=== PATIENT | male | born 1960 | race Caucasian/White ===

== ENCOUNTER 2017-03-17 10:04 | Emergency (ER) | payer OTHER ==
[2017-03-17 10:14] VITALS: BP 164/86
--- NOTE | 2017-03-17 11:40 | EDM.PDOC ---
ED HPI GENERAL MEDICAL PROBLEM - General Chief Complaint: Respiratory Problem Stated Complaint: DIFFICULTY BREATHING Time Seen by Provider: 03/17/17 10:41 Source of Information: Reports: Patient, Family (spouse), RN Notes Reviewed - History of Present Illness INITIAL COMMENTS - FREE TEXT/NARRATIVE: 57 year old male comes in with feeling of "drowing in his saliva" when he lies flat. He has hx of recently diagnosed NonHodgkins Lymphoma, has his first chemo this past Sunday 5 days ago. Does not feel overly short of breath. No chest pain. Occasional nonprod cough. He denies sore throat, fever or chills. No abd pain, nausea or vomiting. He has some local spread in the L neck soft tissue according to his and also some "small spots on his lungs" - Related Data Allergies Allergy/AdvReac Type Severity Reaction Status Date / Time No Known Allergies Allergy Verified 03/17/17 10:14 Home Meds: Home Meds Albuterol Sulfate [Proair Hfa] 8.5 gm IH ASDIRECTED PRN 03/17/17 [History] Allopurinol [Zyloprim] 300 mg PO BID 03/17/17 [History] Ascorbic Acid [Vitamin C] 1,000 mg PO BID 03/17/17 [History] Lisinopril 40 mg PO DAILY 03/17/17 [History] Prochlorperazine [Compazine] 10 mg PO Q6H PRN 03/17/17 [History] Past Medical History HEENT History: Reports: Impaired Vision Other HEENT History: wears corrective lenses Cardiovascular History: Reports: Hypertension Respiratory History: Reports: COPD, Other (See Below) Other Respiratory History: whooping cough 2016 Gastrointestinal History: Reports: GERD Musculoskeletal History: Reports: Other (See Below) Other Musculoskeletal History: right rotator surgery Oncologic (Cancer) History: Reports: Lymphoma - Infectious Disease History Infectious Disease History: Reports: Pertussis (Whooping Cough) - Past Surgical History Cardiovascular Surgical History: Reports: None Respiratory Surgical History: Reports: None Social & Family History - Tobacco Use Smoking Status *Q: Current Every Day Smoker Years of Tobacco use: 40 Packs/Tins Daily: 0.5 Used Tobacco, but Quit: Yes Month Tobacco Last Used: 12 Second Hand Smoke Exposure: No - Caffeine Use Caffeine Use: Reports: Coffee - Recreational Drug Use Recreational Drug Use: No ED ROS GENERAL - Review of Systems Review Of Systems: See Below Constitutional: Denies: Fever, Chills, Diaphoresis HEENT: Denies: Throat Pain, Throat Swelling Respiratory: Reports: Shortness of Breath (exertional), Cough (occasional). Denies: Sputum, Hemoptysis Cardiovascular: Reports: Dyspnea on Exertion. Denies: Chest Pain, Lightheadedness GI/Abdominal: Denies: Abdominal Pain, Nausea, Vomiting Musculoskeletal: Reports: Neck Pain (minimal R neck discomfort, mild swelling R neck) Skin: Denies: Rash Neurological: Denies: Headache, Numbness, Tingling, Trouble Speaking, Weakness ED EXAM, GENERAL - Physical Exam Exam: See Below General Appearance: Alert, No Apparent Distress Eye Exam: Bilateral Eye: PERRL Throat/Mouth: Normal Inspection, Normal Oropharynx Head: Atraumatic. No: Facial Swelling Neck: Supple, Other (There is some swelling to the R lateral neck, nontender at this time) Respiratory/Chest: No Respiratory Distress, Lungs Clear, Normal Breath Sounds Cardiovascular: Regular Rate, Rhythm GI/Abdominal: Soft, Non-Tender Extremities: Normal Inspection, Normal Range of Motion. No: Pedal Edema, Leg Pain, Increased Warmth, Redness Neurological: Alert, Oriented, No Motor/Sensory Deficits Skin Exam: Warm, Dry, Normal Color Course - Vital Signs Last Recorded V/S: Last Vital Signs Temp 97.2 F 03/17/17 10:10 Pulse 97 03/17/17 10:10 Resp 22 H 03/17/17 10:10 BP 164/86 H 03/17/17 10:10 Pulse Ox 98 03/17/17 10:10 - Orders/Labs/Meds Orders: Active Orders 24 hr Category Date Time Status Chest 1V Frontal [CR] Stat Exams 03/17/17 10:42 Taken Labs: Laboratory Tests 03/17/17 03/17/17 Range/Units 10:55 10:55 WBC 13.84 H (4.23-9.07) K/mm3 RBC 3.85 L (4.63-6.08) M/mm3 Hgb 12.0 L (13.7-17.5) gm/L Hct 34.8 L (40.1-51.0) % MCV 90.4 (79.0-92.2) fl MCH 31.2 (25.7-32.2) pg MCHC 34.5 (32.2-35.5) g/dl RDW Std Deviation 41.1 (35.1-43.9) fL Plt Count 165 (163-337) K/mm3 MPV 8.2 L (9.4-12.3) fl Neut % (Auto) 81.6 H (34.0-67.9) % Lymph % (Auto) 3.0 L (21.8-53.1) % Ashley % (Auto) 1.2 L (5.3-12.2) % Eos % (Auto) 0.1 L (0.8-7.0) Baso % (Auto) 0.4 (0.1-1.2) % Neut # (Auto) 11.30 H (1.78-5.38) K/mm3 Lymph # (Auto) 0.41 L (1.32-3.57) K/mm3 Ashley # (Auto) 0.16 L (0.30-0.82) K/mm3 Eos # (Auto) 0.01 L (0.04-0.54) K/mm3 Baso # (Auto) 0.06 (0.01-0.08) K/mm3 Manual Slide Review Abnormal smear Sodium 140 (136-145) mEq/L Potassium 3.7 (3.5-5.1) mEq/L Chloride 104 (98-107) mEq/L Carbon Dioxide 30 (21-32) mEq/L Anion Gap 9.7 (5-15) BUN 19 H (7-18) mg/dL Creatinine 1.1 (0.7-1.3) mg/dL Est Cr Clr Drug Dosing 69.95 mL/min Estimated GFR (MDRD) > 60 (>60) mL/min BUN/Creatinine Ratio 17.3 (14-18) Glucose 100 (74-106) mg/dL Calcium 9.1 (8.5-10.1) mg/dL Total Bilirubin 0.6 (0.2-1.0) mg/dL AST 17 (15-37) U/L ALT 24 (16-63) U/L Alkaline Phosphatase 83 (46-116) U/L Total Protein 6.6 (6.4-8.2) g/dl Albumin 3.8 (3.4-5.0) g/dl Globulin 2.8 gm/dL Albumin/Globulin Ratio 1.4 (1-2) - Re-Assessments/Exams Free Text/Narrative Re-Assessment/Exam: 03/17/17 12:54 CXR does show some small nodular type lesions bilat, no infiltrate, pul congestion or effusion, WBC about 13,800. other labs all relatively normal. Departure - Departure Time of Disposition: 11:40 Disposition: Home, Self-Care 01 Condition: Fair Clinical Impression: Lymphoma Qualifiers: Lymphoma type: non-Hodgkin Non-Hodgkin lymphoma type: unspecified type Lymphoma site: unspecified region Qualified Code(s): C85.90 - Non-Hodgkin lymphoma, unspecified, unspecified site GERD (gastroesophageal reflux disease) Qualifiers: Esophagitis presence: without esophagitis Qualified Code(s): K21.9 - Gastro- esophageal reflux disease without esophagitis - Discharge Information Instructions: Gastroesophageal Reflux Disease, Adult Referrals: Yulia Meza DO [Primary Care Provider] - Forms: ED Department Discharge Additional Instructions: continue current meds, try avoid acidic or spicy food for now, prilosec 20 mg daily to help reduce stomach acid, Call or follow up clinic as needed, return to ED if symptoms worsening in any way. - My Orders Last 24 Hours: My Active Orders 03/17/17 10:42 Chest 1V Frontal [CR] Stat - Assessment/Plan Last 24 Hours: My Active Orders 03/17/17 10:42 Chest 1V Frontal [CR] Stat
--- NOTE | 2017-03-18 19:58 | CR ---
Chest: Portable view of the chest was obtained. Comparison: No prior chest x-ray. Nodule is identified within the right upper lung measuring 1.6 cm. Smaller nodule is noted within the left lung base measuring approximately 7 mm. Two nodules are noted within the right lung base measuring about 1.4 cm and 1.0 cm in size. Small left upper lobe nodule measuring about 7 mm is seen. Lungs otherwise are clear. Heart size is normal. Tortuous thoracic aorta is seen. Infusion port entering from the left side. Previous right shoulder surgery is noted. Impression: 1. Multiple pulmonary nodules which are most likely metastatic in etiology. 2. Other incidental findings. Nothing acute is identified. Diagnostic code #9
== END 2017-03-17 11:50 | disposition home or self-care (01) ==
LOC: JD.ED 10:04
DX: C85.90 Non-Hodgkin lymphoma, unspecified, unspecified site (principal); K21.9 Gastro-esophageal reflux disease without esophagitis; I10 Essential (primary) hypertension; F17.210 Nicotine dependence, cigarettes, uncomplicated; Z79.899 Other long term (current) drug therapy
CPT/HCPCS: 36415; 71010; 71010-26; 80053; 85025; 99284; 99285

== ENCOUNTER 2017-04-18 23:56 | Emergency (ER) | payer OTHER ==
[2017-04-19 00:16] VITALS: BP 134/92
--- NOTE | 2017-04-19 00:31 | EDM.PDOC ---
ED HPI GENERAL MEDICAL PROBLEM - General Chief Complaint: General Stated Complaint: COMPLICATIONS WITH PRETIZONE Time Seen by Provider: 04/19/17 00:35 Source of Information: Reports: Patient, Family ( and daughter) History Limitations: Reports: No Limitations - History of Present Illness INITIAL COMMENTS - FREE TEXT/NARRATIVE: 57-year-old male reports to the ED primarily due to exhaustion secondary to insomnia. Patient has now received his third course of chemotherapy for non- Hodgkin's lymphoma which is stage IV i.e. above and below the diaphragm. No stopped by biopsy of a supraclavicular lymph node on the right side. He receives 100 mg of prednisone orally for 5 days after chemotherapy and he finds that it makes him quite ravenous and hungry while he is on it. Hyperstimulated; however to the point that he becomes agitated and unable to sleep. He finished his prednisone on the and remains agitated and having great difficulty sleeping. He states he'll not offer possibly 30 seconds to minutes and then awakes with a startle response. He is currently on Ambien 10 mg at bedtime for a lengthy period of time and is likely developed a good deal of tolerance to this medication. He is on Ativan 0.5 mg when necessary is recently increased to a full milligram at bedtime and again not helping him sleep. He does not feel ill otherwise in terms that he has no cough fever or chills. Does have some mild diarrhea postchemotherapy. He reports he has not slept at all for the last 4 days and he looks like it. Onset: Gradual, Unknown/Unsure (Problems started since he started high-dose prednisone with his chemotherapy for non-Hodgkin's lymphoma 3 months ago.) Duration: Chronic Location: Reports: Other (Chronic severe insomnia. He has not slept at all for the last 4 days.) Quality: Reports: Same as Previous Episode Severity: Severe Improves with: Reports: None Worsens with: Reports: None Context: Reports: Other Associated Symptoms: Reports: Malaise, Other (Denies any significant arthritic pain in his hips knees elbows or shoulders.). Denies: Confusion (Currently on chemotherapy for non-Hodgkin's lymphoma which includes high-dose prednisone 100 mg daily after chemotherapy is been completed), Chest Pain, Cough, cough w sputum, Diaphoresis, Fever/Chills, Headaches, Loss of Appetite, Nausea/Vomiting , Rash, Seizure, Shortness of Breath, Syncope Treatments NURSING SURGICAL SERVICES DIRECTOR: Reports: Other (see below) (Taking Ambien and Ativan at bedtime without relief.) - Related Data Allergies Allergy/AdvReac Type Severity Reaction Status Date / Time No Known Allergies Allergy Verified 04/19/17 00:16 Home Meds: Home Meds Albuterol Sulfate [Proair Hfa] 8.5 gm IH ASDIRECTED PRN 03/17/17 [History] Allopurinol [Zyloprim] 300 mg PO BID 03/17/17 [History] Ascorbic Acid [Vitamin C] 1,000 mg PO BID 03/17/17 [History] Lisinopril 40 mg PO DAILY 03/17/17 [History] Prochlorperazine [Compazine] 10 mg PO Q6H PRN 03/17/17 [History] Aspirin [Ecotrin] 325 mg PO DAILY 04/19/17 [History] ClonazePAM [KlonoPIN] 2 mg PO BEDTIME PRN #30 tablet 04/19/17 [Rx] Zolpidem [Ambien] 10 mg PO BEDTIME 04/19/17 [History] Past Medical History HEENT History: Reports: Impaired Vision Other HEENT History: wears corrective lenses Cardiovascular History: Reports: Hypertension Respiratory History: Reports: COPD, Other (See Below) Other Respiratory History: whooping cough 2016 Gastrointestinal History: Reports: GERD Musculoskeletal History: Reports: Other (See Below) Other Musculoskeletal History: right rotator surgery Oncologic (Cancer) History: Reports: Non-Hodgkin's Lymphoma (Diagnosed by biopsy of a right supraclavicular lymph node in December. Diagnosis stage IV disease IM bubble below the diaphragm. Currently receiving chemotherapy) - Infectious Disease History Infectious Disease History: Reports: Pertussis (Whooping Cough) - Past Surgical History Cardiovascular Surgical History: Reports: None Respiratory Surgical History: Reports: None Social & Family History - Tobacco Use Smoking Status *Q: Current Every Day Smoker Years of Tobacco use: 40 Packs/Tins Daily: 0.5 Used Tobacco, but Quit: Yes Month Tobacco Last Used: 12 Second Hand Smoke Exposure: No - Caffeine Use Caffeine Use: Reports: Coffee - Recreational Drug Use Recreational Drug Use: No - Living Situation & Occupation Living situation: Reports: Occupation: Disabled ED ROS GENERAL - Review of Systems Review Of Systems: See Below Constitutional: Reports: Chills, Malaise, Weakness (Occasional chills.), Fatigue , Weight Loss (Has lost about 30 pounds of weight since he started chemotherapy. ) HEENT: Reports: No Symptoms Respiratory: Reports: No Symptoms, Other (Occasionally feels like he is choking on his saliva when he's falling asleep.) Cardiovascular: Reports: No Symptoms Endocrine: Reports: Fatigue GI/Abdominal: Reports: Diarrhea (Mild diarrhea and loose semi-formed stools without blood) : Reports: No Symptoms Musculoskeletal: Reports: No Symptoms Skin: Reports: No Symptoms Neurological: Reports: Dizziness, Weakness (generalized from not sleeping.). Denies: Paresthesia, Tremors, Trouble Speaking, Difficulty Walking Psychiatric: Reports: Mood Lability, Other (Severe insomnia.) Hematologic/Lymphatic: Reports: Anemia Immunologic: Reports: No Symptoms ED EXAM, GENERAL - Physical Exam Exam: See Below Exam Limited By: No Limitations General Appearance: Alert, Other (Appears extremely tired and exhausted.) Eye Exam: Bilateral Eye: Normal Inspection Throat/Mouth: Normal Inspection, Normal Lips, Normal Teeth, Normal Oropharynx Head: Normocephalic, Sinus Tenderness Neck: Normal Inspection, Supple, Non-Tender, Full Range of Motion. No: Lymphadenopathy (L), Lymphadenopathy (R) Respiratory/Chest: No Respiratory Distress, Lungs Clear, Normal Breath Sounds, No Accessory Muscle Use Cardiovascular: Normal Peripheral Pulses, Regular Rate, Rhythm, No Edema, No Gallop, No Murmur Extremities: Normal Inspection, Normal Range of Motion, Non-Tender, No Pedal Edema Neurological: Alert, Oriented, CN II-XII Intact, Normal Cognition, Normal Gait, No Motor/Sensory Deficits Psychiatric: Normal Affect, Normal Mood Skin Exam: Warm, Dry, Intact, Normal Color, No Rash Course - Vital Signs Last Recorded V/S: Last Vital Signs Temp 36.8 C 04/19/17 00:13 Pulse 88 04/19/17 00:13 Resp 18 04/19/17 00:13 BP 134/92 H 04/19/17 00:13 Pulse Ox 97 04/19/17 00:13 - Orders/Labs/Meds Meds: Medications Discontinued Medications Generic Name Dose Route Start Last Admin Trade Name Freq PRN Reason Stop Dose Admin Clonazepam 2 mg 04/19/17 00:34 04/19/17 00:40 Klonopin PO 04/19/17 00:35 2 mg ONETIME ONE Administration Diphenhydramine HCl 25 mg 04/19/17 00:34 04/19/17 00:40 Benadryl PO 04/19/17 00:35 25 mg ONETIME ONE Administration - Radiology Interpretation Free Text/Narrative:: 57-year-old male presents to the ED primarily with exhaustion with inability to sleep at all for the last 4 days. Patient has a primary problem with insomnia and is been on zolpidem 10 for greater than a year. Recently his Ativan was increased from 0.5-5 mg at bedtime and it too has failed to help him sleep. Patient is currently receiving chemotherapy for non-Hodgkin's lymphoma stage IV. Diagnosed in December of this year. He receives 100 mg of prednisone orally for 5 days after chemotherapy per protocol. He finds that this makes him quite hungry active but does keep him awake. States that he has been unable to sleep since starting this medication. Increased doses of Ativan with his zolpidem no failed to help him sleep. He presents therefore exhausted. Examination does not show any other significant abnormalities. Plan I will place him on clonazepam 2 mg at bedtime with Benadryl 25 mg at bedtime and see if this does not improve his sleep habit. Advise of the Benadryl may improve his stool status from diarrhea to formed. It may also have an effect on his prostate gland slowed down his urinary stream however. He will stop the zolpidem completely. Ativan may be used 0.5 mg when necessary for napping if needed. He will follow-up with his primary care provider if any further problems occur. They are going to mention to the oncologist that they wished to defer the prednisone which was break the non-Hodgkin's treatment protocol. Perhaps dexamethasone could be used as a alternative. It may have a better side effect profile. Departure - Departure Time of Disposition: 00:36 Disposition: Home, Self-Care 01 Condition: Fair Clinical Impression: Adverse effects of medication Qualifiers: Encounter type: initial encounter Qualified Code(s): T88.7XXA - Unspecified adverse effect of drug or medicament, initial encounter Insomnia disorder Qualifiers: Insomnia type: drug-induced Qualified Code(s): F19.982 - Other psychoactive substance use, unspecified with psychoactive substance-induced sleep disorder - Discharge Information Prescriptions: ClonazePAM [KlonoPIN] 2 mg PO BEDTIME PRN #30 tablet PRN Reason: Insomnia Instructions: Insomnia Referrals: Yulia Meza DO [Primary Care Provider] - Forms: ED Department Discharge Additional Instructions: Evaluation the emergency room today in regards to severe insomnia induced by high dose prednisone being used for non-Hodgkin lymphoma chemotherapy treatment program. This is caused a hyper excited brain which is left you unable to fall asleep. This is resulting in significant exhaustion. Current sleep medications zolpidem and Ativan are not helping. Suggest use of any some which is Benadryl 50 mg with clonazepam 2 mg at bedtime as needed to help sleep. Usually the side effects of the prednisone wear off after 10 days and you may find that you do not need full dose of clonazepam to help sleep. A break the tablet in half. May use Ativan 0.5 mg on an as-needed basis for nap if needed. Follow-up with personal physician as planned.
[2017-04-19] MEDS ORDERED: diphenhydrAMINE 25 MG Cap PO ONE (00:34)
[2017-04-19] MEDS ORDERED: ClonazePAM 1 MG Tab PO ONE (00:34)
== END 2017-04-19 00:50 | disposition home or self-care (01) ==
LOC: JD.ED 23:56
DX: R45.1 Restlessness and agitation (principal); F19.982 Other psychoactive substance use, unspecified with psychoactive substance-induced sleep disorder; T38.0X5A Adverse effect of glucocorticoids and synthetic analogues, initial encounter; F17.210 Nicotine dependence, cigarettes, uncomplicated; Z79.899 Other long term (current) drug therapy
CPT/HCPCS: 99283; A9270

== ENCOUNTER 2017-08-16 07:51 | Day surgery (SDC) | payer OTHER ==
[2017-08-16] MEDS: Polymyxin B/Trimethoprim 10 ML Bottle EYELF SCH ×3 (08:27→10:31)
[2017-08-16] MEDS: Brimonidine 0.2% Ophth Soln 5 ML Bottle EYELF SCH ×4 (08:36→10:31)
[2017-08-16] MEDS: Phenylephrine 2.5% Ophth Soln 2 ML Bot EYELF SCH ×6 (08:41→10:12)
--- NOTE | 2017-08-16 08:59 | PCM.PREANE ---
Preanesthetic Assessment - Procedure Proposed Procedure: Left Eye Extraction Cataract With Implant - Anesthesia/Transfusion/Family Hx Anesthesia History: Prior Anesthesia Without Reaction Family History of Anesthesia Reaction: No Transfusion History: Prior Transfusion Without Reaction Intubation History: Unknown - Review of Systems General: No Symptoms Pulmonary: No Symptoms Cardiovascular: No Symptoms Gastrointestinal: No Symptoms Neurological: No Symptoms Other: Reports: None - Physical Assessment NPO Status Date: 08/15/17 NPO Status Time: 20:00 O2 Sat by Pulse Oximetry: 98 Respiratory Rate: 20 Vital Signs: Last Vital Signs Temp 36.5 C 08/16/17 08:00 Pulse 113 H 08/16/17 08:00 Resp 20 08/16/17 08:00 BP 125/100 H 08/16/17 08:00 Pulse Ox 98 08/16/17 08:00 Height: 1.73 m Weight: 69.853 kg ASA Class: 3 Mental Status: Alert & Oriented x3 Airway Class: Mallampati = 1 Dentition: Reports: Normal Dentition Thyro-Mental Finger Breadths: 3 Mouth Opening Finger Breadths: 5 ROM/Head Extension: Full Lungs: Clear to Auscultation, Normal Respiratory Effort Cardiovascular: Regular Rate, Regular Rhythm - Allergies Allergies/Adverse Reactions: Allergies Allergy/AdvReac Type Severity Reaction Status Date / Time No Known Allergies Allergy Verified 08/15/17 12:54 - Blood Blood Available: No - Acknowledgements Anesthesia Type Planned: MAC Pt an Appropriate Candidate for the Planned Anesthesia: Yes Alternatives and Risks of Anesthesia Discussed w Pt/Guardian: Yes Pt/Guardian Understands and Agrees with Anesthesia Plan: Yes PreAnesthesia Questionnaire HEENT History: Reports: Impaired Vision Other HEENT History: wears corrective lenses Cardiovascular History: Reports: Hypertension (no longer on medication) Respiratory History: Reports: COPD, Other (See Below) Other Respiratory History: whooping cough 2016 Gastrointestinal History: Reports: GERD Musculoskeletal History: Reports: Other (See Below) Other Musculoskeletal History: right rotator surgery Oncologic (Cancer) History: Reports: Non-Hodgkin's Lymphoma (Diagnosed by biopsy of a right supraclavicular lymph node in December. Diagnosis stage IV disease IM bubble below the diaphragm. Currently receiving chemotherapy) - Infectious Disease History Infectious Disease History: Reports: Pertussis (Whooping Cough) - Past Surgical History Cardiovascular Surgical History: Reports: None Respiratory Surgical History: Reports: None - SUBSTANCE USE Smoking Status *Q: Current Every Day Smoker Tobacco Use Within Last Twelve Months: Other (See Below) Second Hand Smoke Exposure: No Recreational Drug Use History: No - HOME MEDS Home Medications: Home Meds Albuterol Sulfate [Proair Hfa] 8.5 gm IH ASDIRECTED PRN 03/17/17 [History] Ascorbic Acid [Vitamin C] 1,000 mg PO BID 03/17/17 [History] Lisinopril 40 mg PO DAILY 03/17/17 [History] Prochlorperazine [Compazine] 10 mg PO Q6H PRN 03/17/17 [History] ClonazePAM [KlonoPIN] 2 mg PO BEDTIME PRN #30 tablet 04/19/17 [Rx] Aspirin 81 mg PO DAILY 08/15/17 [History] Dexamethasone [Dexamethasone] 4 mg PO DAILY PRN 08/15/17 [History] LORazepam [Ativan] 0.5 mg PO QID PRN 08/15/17 [History] Potassium Chloride [Klor-Con M20] 20 meq PO DAILY 08/15/17 [History] - CURRENT (IN HOUSE) MEDS Current Meds: Current Medications Brimonidine Tartrate (Alphagan 0.2% Ophth Soln) 0 ml EYELF ASDIRECTED VALERIA Stop: 08/16/17 18:00 Last Admin: 08/16/17 08:36 Dose: 1 drop Cefuroxime Sodium (Zinacef) 0 mg EYELF ASDIRECTED VALERIA Stop: 08/16/17 18:00 Lidocaine HCl (Xylocaine-Mpf 1%) 10 ml INJECT ASDIRECTED VALERIA Stop: 08/16/17 18:00 Phenylephrine HCl (Cesar-Synephrine 2.5% Ophth Soln) 0 ml EYELF ASDIRECTED VALERIA Stop: 08/16/17 18:00 Last Admin: 08/16/17 08:41 Dose: 1 drop Pilocarpine HCl (Pilocar 4% Ophth Soln) 0 ml EYELF ASDIRECTED VALERIA Stop: 08/16/17 18:00 Polymyxin/Trimethoprim Sulfate (Polytrim Ophth Soln) 0 ml EYELF ASDIRECTED VALERIA Stop: 08/16/17 18:00 Last Admin: 08/16/17 08:27 Dose: 1 drop Tetracaine HCl (Tetracaine 0.5% Steri-Unit Analisa) 0 ml EYELF ASDIRECTED VALERIA Stop: 08/16/17 18:00 Tropicamide (Mydriacyl 1% Ophth Soln) 0 ml EYELF ASDIRECTED VALERIA Stop: 08/16/17 18:00 Last Admin: 08/16/17 08:48 Dose: 1 drop
[2017-08-16] MEDS: Lidocaine 1% PF 2 ML SDV INJECT SCH ×2 (09:19→10:20)
[2017-08-16] MEDS: Tetracaine HCl/PF 0.5% 4 ML Bottle EYELF SCH ×3 (09:19→10:20)
[2017-08-16] MEDS: Cefuroxime 10 MG/ML SYRINGE EYELF SCH ×2 (09:19→10:30)
[2017-08-16] MEDS: Pilocarpine 4% Ophth Soln 15 ML Bot EYELF SCH ×2 (09:20→10:31)
--- NOTE | 2017-08-16 10:32 | PCM48HPAN ---
Post Anesthesia Note - EVALUATION WITHIN 48HRS OF ANESTHETIC Vital Signs in Normal Range: Yes Patient Participated in Evaluation: Yes Respiratory Function Stable: Yes Airway Patent: Yes Cardiovascular Function Stable: Yes Hydration Status Stable: Yes Pain Control Satisfactory: Yes Nausea and Vomiting Control Satisfactory: Yes Mental Status Recovered: Yes Pulse Rate: 84 SaO2: 98 Resp Rate: 20 Blood Pressure: 140/89
[2017-08-16 11:19] VITALS: BP 125/84
== END 2017-08-16 10:43 | disposition home or self-care (01) ==
LOC: JD.SDS 07:51
PROVIDERS: ATTEND Ophthalmology
DX: H25.813 Combined forms of age-related cataract, bilateral (principal); H16.103 Unspecified superficial keratitis, bilateral; H16.223 Keratoconjunctivitis sicca, not specified as Sjogren's, bilateral; H02.831 Dermatochalasis of right upper eyelid; H02.834 Dermatochalasis of left upper eyelid; C83.91 Non-follicular (diffuse) lymphoma, unspecified, lymph nodes of head, face, and neck; I10 Essential (primary) hypertension; J45.909 Unspecified asthma, uncomplicated; K21.9 Gastro-esophageal reflux disease without esophagitis; F17.210 Nicotine dependence, cigarettes, uncomplicated; Z79.899 Other long term (current) drug therapy; Z79.82 Long term (current) use of aspirin
CPT/HCPCS: 66984; C1780; J0697; A9270-GY

== ENCOUNTER 2017-09-13 10:59 | Day surgery (SDC) | payer OTHER ==
[~2017-09-13 10:59] MED LIST: Cefuroxime 10 MG/ML SYRINGE EYERT SCH; Lidocaine 1% PF 2 ML SDV INJECT SCH; Pilocarpine 4% Ophth Soln 15 ML Bot EYERT SCH
[2017-09-13] MEDS: Polymyxin B/Trimethoprim 10 ML Bottle EYERT SCH ×3 (12:08→13:29)
[2017-09-13] MEDS: Brimonidine 0.2% Ophth Soln 5 ML Bottle EYERT SCH ×3 (12:13→13:29)
[2017-09-13] MEDS: Phenylephrine 2.5% Ophth Soln 2 ML Bot EYERT SCH ×5 (12:19→13:12)
--- NOTE | 2017-09-13 12:30 | PCM.PREANE ---
Preanesthetic Assessment - Anesthesia/Transfusion/Family Hx Anesthesia History: Prior Anesthesia Without Reaction Family History of Anesthesia Reaction: No Transfusion History: Prior Transfusion Without Reaction Intubation History: Unknown - Review of Systems General: Other (lymphoma, no treatments for past 2 months) Pulmonary: Shortness of Breath (with activity) Cardiovascular: Chest Pain (on occasion with over exertion), Other (HTN) Gastrointestinal: No Symptoms Neurological: No Symptoms - Physical Assessment NPO Status Date: 09/12/17 NPO Status Time: 21:00 Pulse: 118 O2 Sat by Pulse Oximetry: 97 Respiratory Rate: 20 Blood Pressure: 111/85 Vital Signs: Last Vital Signs Temp 37.0 C 09/13/17 11:58 Pulse 118 H 09/13/17 11:58 Resp 20 09/13/17 11:58 BP 111/85 09/13/17 11:58 Pulse Ox 97 09/13/17 11:58 Height: 1.73 m Weight: 68.039 kg ASA Class: 3 Mental Status: Alert & Oriented x3 Airway Class: Mallampati = 2 Dentition: Reports: Normal Dentition Thyro-Mental Finger Breadths: 3 Mouth Opening Finger Breadths: 3 ROM/Head Extension: Full Lungs: Clear to Auscultation, Normal Respiratory Effort Cardiovascular: Regular Rate, Regular Rhythm - Allergies Allergies/Adverse Reactions: Allergies Allergy/AdvReac Type Severity Reaction Status Date / Time No Known Allergies Allergy Verified 09/12/17 13:54 - Blood Blood Available: No Product(s) Available: None - Acknowledgements Anesthesia Type Planned: MAC Pt an Appropriate Candidate for the Planned Anesthesia: Yes Alternatives and Risks of Anesthesia Discussed w Pt/Guardian: Yes Pt/Guardian Understands and Agrees with Anesthesia Plan: Yes PreAnesthesia Questionnaire HEENT History: Reports: Impaired Vision Other HEENT History: wears corrective lenses Cardiovascular History: Reports: Hypertension (no longer on medication) Respiratory History: Reports: COPD, Other (See Below) Other Respiratory History: whooping cough 2016 Gastrointestinal History: Reports: GERD Musculoskeletal History: Reports: Other (See Below) Other Musculoskeletal History: right rotator surgery Oncologic (Cancer) History: Reports: Non-Hodgkin's Lymphoma (Diagnosed by biopsy of a right supraclavicular lymph node in December. Diagnosis stage IV disease IM bubble below the diaphragm. Currently receiving chemotherapy) - Infectious Disease History Infectious Disease History: Reports: Pertussis (Whooping Cough) - Past Surgical History Cardiovascular Surgical History: Reports: None Respiratory Surgical History: Reports: None - SUBSTANCE USE Smoking Status *Q: Current Every Day Smoker Tobacco Use Within Last Twelve Months: Other (See Below) Second Hand Smoke Exposure: No Recreational Drug Use History: No - HOME MEDS Home Medications: Home Meds Albuterol Sulfate [Proair Hfa] 8.5 gm IH ASDIRECTED PRN 03/17/17 [History] Ascorbic Acid [Vitamin C] 1,000 mg PO BID 03/17/17 [History] Prochlorperazine [Compazine] 10 mg PO Q6H PRN 03/17/17 [History] ClonazePAM [KlonoPIN] 2 mg PO BEDTIME PRN #30 tablet 04/19/17 [Rx] Aspirin 81 mg PO DAILY 08/15/17 [History] Dexamethasone [Dexamethasone] 4 mg PO DAILY PRN 08/15/17 [History] LORazepam [Ativan] 0.5 mg PO QID PRN 08/15/17 [History] Potassium Chloride [Klor-Con M20] 20 meq PO DAILY 08/15/17 [History] - CURRENT (IN HOUSE) MEDS Current Meds: Current Medications Brimonidine Tartrate (Alphagan 0.2% Ophth Soln) 0 ml EYERT ASDIRECTED VALERIA Stop: 09/13/17 18:00 Last Admin: 09/13/17 12:13 Dose: 1 drop Cefuroxime Sodium (Zinacef) 0 mg EYERT ASDIRECTED VALERIA Stop: 09/13/17 18:00 Lidocaine HCl (Xylocaine-Mpf 1%) 10 ml INJECT ASDIRECTED VALERIA Stop: 09/13/17 18:00 Phenylephrine HCl (Cesar-Synephrine 2.5% Ophth Soln) 0 ml EYERT ASDIRECTED VALERIA Stop: 09/13/17 18:00 Last Admin: 09/13/17 12:19 Dose: 1 drop Pilocarpine HCl (Pilocar 4% Ophth Soln) 0 ml EYERT ASDIRECTED VALERIA Stop: 09/13/17 18:00 Polymyxin/Trimethoprim Sulfate (Polytrim Ophth Soln) 0 ml EYERT ASDIRECTED VALERIA Stop: 09/13/17 18:00 Last Admin: 09/13/17 12:08 Dose: 1 drop Tetracaine HCl (Tetracaine 0.5% Steri-Unit Analisa) 0 ml EYERT ASDIRECTED VALERIA Stop: 09/13/17 18:00 Tropicamide (Mydriacyl 1% Ophth Soln) 0 ml EYERT ASDIRECTED VALERIA Stop: 09/13/17 18:00
[2017-09-13] MEDS: Tetracaine HCl/PF 0.5% 4 ML Bottle EYERT SCH ×2 (13:05→13:16)
--- NOTE | 2017-09-13 13:33 | PCM48HPAN ---
Post Anesthesia Note - EVALUATION WITHIN 48HRS OF ANESTHETIC Vital Signs in Normal Range: Yes Patient Participated in Evaluation: Yes Respiratory Function Stable: Yes Airway Patent: Yes Cardiovascular Function Stable: Yes Hydration Status Stable: Yes Pain Control Satisfactory: Yes Nausea and Vomiting Control Satisfactory: Yes Mental Status Recovered: Yes Pulse Rate: 101 SaO2: 100 Resp Rate: 20 Temperature: 36 C Blood Pressure: 132/96
[2017-09-13 13:41] VITALS: BP 116/82
== END 2017-09-13 13:38 | disposition home or self-care (01) ==
LOC: JD.SDS 10:59
PROVIDERS: ATTEND Ophthalmology
DX: H25.811 Combined forms of age-related cataract, right eye (principal); H16.103 Unspecified superficial keratitis, bilateral; H16.223 Keratoconjunctivitis sicca, not specified as Sjogren's, bilateral; H02.834 Dermatochalasis of left upper eyelid; H02.831 Dermatochalasis of right upper eyelid; J44.9 Chronic obstructive pulmonary disease, unspecified; K21.9 Gastro-esophageal reflux disease without esophagitis; F17.210 Nicotine dependence, cigarettes, uncomplicated; I10 Essential (primary) hypertension; Z96.1 Presence of intraocular lens; Z85.72 Personal history of non-Hodgkin lymphomas; Z79.899 Other long term (current) drug therapy; Z79.82 Long term (current) use of aspirin
CPT/HCPCS: 66984; J0697; A9270-GY; C1780; J2001

== ENCOUNTER 2018-03-18 15:54 | Emergency (ER) | payer OTHER ==
[2018-03-18 16:07] VITALS: BP 118/85
--- NOTE | 2018-03-18 16:12 | EDM.PDOC ---
ED HPI GENERAL MEDICAL PROBLEM - General Chief Complaint: Cardiovascular Problem Stated Complaint: RETAINING FLUID Time Seen by Provider: 03/18/18 16:05 Source of Information: Reports: Patient, RN Notes Reviewed - History of Present Illness INITIAL COMMENTS - FREE TEXT/NARRATIVE: 58-year-old male was brought in by family for evaluation of difficulty breathing , worsening dyspnea progressing over this last week or so but especially the last few days. He has always slept with head and chest mildly elevated but now has had to have the head chest more elevated the last 2 or 3 days. He does have history of lymphoma first diagnosed about or over a year ago. He has been on chemotherapy under various treatment plans from the [facility], he currently is receiving chemotherapy about every 3 weeks with his last chemotherapy somewhat over 2 weeks ago. He now has been on chronic oxygen for the last month or 2. Very occasional cough mostly nonproductive. There has been increased swelling of both legs and also increased swelling of his right hand and arm. No recent fever or chills. He denies chest or abdominal pain at this time. Appetite has been diminished. No recent vomiting or diarrhea. - Related Data Allergies Allergy/AdvReac Type Severity Reaction Status Date / Time No Known Allergies Allergy Verified 03/18/18 16:07 Home Meds: Home Meds Albuterol Sulfate [Proair Hfa] 8.5 gm IH ASDIRECTED PRN 03/17/17 [History] Potassium Chloride [Klor-Con M20] 20 meq PO DAILY 08/15/17 [History] Carvedilol 6.25 mg PO BID 03/18/18 [History] Hydrocodone/Acetaminophen [Hydrocodon-Acetaminoph 7.5-325] 1 tab PO Q6HR PRN [History] Levofloxacin 1 tab PO DAILY 03/18/18 [History] Ondansetron [Zofran ODT] 8 mg PO TID PRN 03/18/18 [History] Past Medical History HEENT History: Reports: Impaired Vision Other HEENT History: wears corrective lenses Cardiovascular History: Reports: Hypertension (no longer on medication) Respiratory History: Reports: COPD, Other (See Below) Other Respiratory History: whooping cough 2015 Gastrointestinal History: Reports: GERD Musculoskeletal History: Reports: Other (See Below) Other Musculoskeletal History: right rotator surgery Oncologic (Cancer) History: Reports: Non-Hodgkin's Lymphoma (Diagnosed by biopsy of a right supraclavicular lymph node in December. Diagnosis stage IV disease IM bubble below the diaphragm. Currently receiving chemotherapy) - Infectious Disease History Infectious Disease History: Reports: Pertussis (Whooping Cough) - Past Surgical History Cardiovascular Surgical History: Reports: None Respiratory Surgical History: Reports: None Social & Family History - Tobacco Use Smoking Status *Q: Former Smoker Used Tobacco, but Quit: Yes Month/Year Tobacco Last Used: 4 years ago - Caffeine Use Caffeine Use: Reports: Coffee Other Caffeine Use: coffee sometimes - Recreational Drug Use Recreational Drug Use: No - Living Situation & Occupation Living situation: Reports: Occupation: Disabled ED ROS GENERAL - Review of Systems Review Of Systems: See Below Constitutional: Denies: Fever, Chills, Diaphoresis HEENT: Denies: Throat Pain Respiratory: Reports: Shortness of Breath, Cough (Occasional). Denies: Wheezing , Pleuritic Chest Pain Cardiovascular: Denies: Chest Pain Endocrine: Reports: Fatigue GI/Abdominal: Reports: Decreased Appetite. Denies: Abdominal Pain, Diarrhea, Nausea, Vomiting Musculoskeletal: Denies: Back Pain, Leg Pain Skin: Denies: Rash Neurological: Reports: Dizziness, Weakness. Denies: Numbness, Tingling, Trouble Speaking (Generalized) ED EXAM, GENERAL - Physical Exam Exam: See Below General Appearance: Alert, Mild Distress Eye Exam: Bilateral Eye: PERRL Throat/Mouth: Normal Inspection, Normal Oropharynx Head: Atraumatic. No: Facial Swelling Neck: Supple, Other (No JVD) Respiratory/Chest: Respiratory Distress (Moderate tachypnea, respirations 25), Decreased Breath Sounds (Bilateral). No: Rales, Rhonchi, Wheezing Cardiovascular: Tachycardia GI/Abdominal: Soft, Non-Tender. No: Guarding Extremities: Normal Inspection, Pedal Edema (Moderate bilateral, very prominent sock line with increased swelling edema above the sock line). No: Leg Pain, Increased Warmth, Redness Skin Exam: Warm, Dry, Normal Color Course - Vital Signs Last Recorded V/S: Last Vital Signs Temp 99.4 F 03/18/18 16:01 Pulse 101 H 03/18/18 16:01 Resp 25 H 03/18/18 16:01 BP 118/85 03/18/18 16:01 Pulse Ox 94 L 03/18/18 17:17 - Orders/Labs/Meds Orders: Active Orders 24 hr Category Date Time Status Oxygen Therapy [RC] ASDIRECTED Care 03/18/18 16:28 Active RT Aerosol Therapy [RC] ASDIRECTED Care 03/18/18 17:09 Active CULTURE BLOOD [] Stat Lab 03/18/18 17:04 Received CULTURE BLOOD [] Stat Lab 03/18/18 17:42 Ordered Labs: Laboratory Tests 03/18/18 03/18/18 03/18/18 Range/Units 17:04 17:04 17:04 WBC 0.24 L* (4.23-9.07) K/mm3 RBC 3.39 L (4.63-6.08) M/mm3 Hgb 10.1 L (13.7-17.5) gm/L Hct 28.3 L (40.1-51.0) % MCV 83.5 (79.0-92.2) fl MCH 29.8 (25.7-32.2) pg MCHC 35.7 H (32.2-35.5) g/dl RDW Std Deviation 40.6 (35.1-43.9) fL Plt Count 81 L (163-337) K/mm3 MPV 9.1 L (9.4-12.3) fl Neut % (Auto) 20.9 L (34.0-67.9) % Lymph % (Auto) 37.5 (21.8-53.1) % [place] % (Auto) 33.3 H (5.3-12.2) % Eos % (Auto) 0 L (0.8-7.0) Baso % (Auto) 0.0 L (0.1-1.2) % Neut # (Auto) 0.05 L (1.78-5.38) K/mm3 Lymph # (Auto) 0.09 L (1.32-3.57) K/mm3 [place] # (Auto) 0.08 L (0.30-0.82) K/mm3 Eos # (Auto) 0.00 L (0.04-0.54) K/mm3 Baso # (Auto) 0.00 L (0.01-0.08) K/mm3 Manual Slide Review Abnormal smear Sodium 116 L* (136-145) mEq/L Potassium 3.8 (3.5-5.1) mEq/L Chloride 85 L (98-107) mEq/L Carbon Dioxide 28 (21-32) mEq/L Anion Gap 6.8 (5-15) BUN 21 H (7-18) mg/dL Creatinine 1.2 (0.7-1.3) mg/dL Est Cr Clr Drug Dosing 53.34 mL/min Estimated GFR (MDRD) > 60 (>60) mL/min BUN/Creatinine Ratio 17.5 (14-18) Glucose 118 H (74-106) mg/dL Calcium 8.1 L (8.5-10.1) mg/dL Total Bilirubin 0.8 (0.2-1.0) mg/dL AST 46 H (15-37) U/L ALT 32 (16-63) U/L Alkaline Phosphatase 106 (46-116) U/L C-Reactive Protein (<1.0) mg/dL NT-Pro-B Natriuret Pep 1633 H (0-125) pg/mL Total Protein 5.1 L (6.4-8.2) g/dl Albumin 2.4 L (3.4-5.0) g/dl Globulin 2.7 gm/dL Albumin/Globulin Ratio 0.9 L (1-2) 03/18/ Range/Units 17:04 WBC (4.23-9.07) K/mm3 RBC (4.63-6.08) M/mm3 Hgb (13.7-17.5) gm/L Hct (40.1-51.0) % MCV (79.0-92.2) fl MCH (25.7-32.2) pg MCHC (32.2-35.5) g/dl RDW Std Deviation (35.1-43.9) fL Plt Count (163-337) K/mm3 MPV (9.4-12.3) fl Neut % (Auto) (34.0-67.9) % Lymph % (Auto) (21.8-53.1) % [place] % (Auto) (5.3-12.2) % Eos % (Auto) (0.8-7.0) Baso % (Auto) (0.1-1.2) % Neut # (Auto) (1.78-5.38) K/mm3 Lymph # (Auto) (1.32-3.57) K/mm3 [place] # (Auto) (0.30-0.82) K/mm3 Eos # (Auto) (0.04-0.54) K/mm3 Baso # (Auto) (0.01-0.08) K/mm3 Manual Slide Review Sodium (136-145) mEq/L Potassium (3.5-5.1) mEq/L Chloride (98-107) mEq/L Carbon Dioxide (21-32) mEq/L Anion Gap (5-15) BUN (7-18) mg/dL Creatinine (0.7-1.3) mg/dL Est Cr Clr Drug Dosing mL/min Estimated GFR (MDRD) (>60) mL/min BUN/Creatinine Ratio (14-18) Glucose (74-106) mg/dL Calcium (8.5-10.1) mg/dL Total Bilirubin (0.2-1.0) mg/dL AST (15-37) U/L ALT (16-63) U/L Alkaline Phosphatase (46-116) U/L C-Reactive Protein 14.9 H* (<1.0) mg/dL NT-Pro-B Natriuret Pep (0-125) pg/mL Total Protein (6.4-8.2) g/dl Albumin (3.4-5.0) g/dl Globulin gm/dL Albumin/Globulin Ratio (1-2) Meds: Medications Discontinued Medications Generic Name Dose Route Start Last Admin Trade Name Freq PRN Reason Stop Dose Admin Albuterol/Ipratropium 3 ml 03/18/18 17:09 03/18/18 17:17 Duoneb 3.0-0.5 Mg/3 Ml NEB 03/18/18 17:10 3 ml ONETIME ONE Administration Piperacillin Sod/Tazobactam 100 mls @ 200 mls/hr 03/18/18 17:40 03/18/18 18: 10 Sod 4.5 gm/ Sodium Chloride IV 03/18/18 18:09 200 mls/hr ONETIME ONE Administration - Re-Assessments/Exams Free Text/Narrative Re-Assessment/Exam: 03/18/18 17:35 Chest x-ray shows diffuse interstitial and alveolar densities involving the right lower lung field and left mid lung field especially. His upper mediastinum is somewhat widened, lymphadenopathy not excluded. See radiology report for details. Findings suggestive for opportunistic as well as typical infection or combination of infection and metastasis. 03/18/18 18:00. WBC has come back critically low at 240, 20% neutrophils for at total neutrophil count of 48. Sodium has come back critically low at 116. Other labs are as documented. Have started zosyn 4.5 grams IV. 03/18/18 18:30. Have discussed with Dr Govea, Hospitalist who does accept patient in transfer. We will be sending him by ground ambulance. Departure - Departure Time of Disposition: 18:12 Disposition: DC/Tfer to [facility] 02 Reason for Transfer *Q: Other Condition: Critical Clinical Impression: Hyponatremia Neutropenia Qualifiers: Neutropenia type: secondary to cancer chemotherapy Qualified Code(s): D70.1 - Agranulocytosis secondary to cancer chemotherapy; T45.1X5A - Adverse effect of antineoplastic and immunosuppressive drugs, initial encounter Lymphoma Qualifiers: Lymphoma type: non-Hodgkin Non-Hodgkin lymphoma type: unspecified type Lymphoma site: unspecified region Qualified Code(s): C85.90 - Non-Hodgkin lymphoma, unspecified, unspecified site Pneumonia Qualifiers: Pneumonia type: due to unspecified organism Laterality: bilateral Lung location : unspecified part of lung Qualified Code(s): J18.9 - Pneumonia, unspecified organism Referrals: Maria C Monroy PA-C [Primary Care Provider] - Forms: ED Department Discharge - My Orders Last 24 Hours: My Active Orders 03/18/18 16:28 Oxygen Therapy [RC] ASDIRECTED 03/18/18 17:04 CULTURE BLOOD [BC] Stat 03/18/18 17:09 RT Aerosol Therapy [RC] ASDIRECTED 03/18/18 17:42 CULTURE BLOOD [BC] Stat - Assessment/Plan Last 24 Hours: My Active Orders 03/18/18 16:28 Oxygen Therapy [RC] ASDIRECTED 03/18/18 17:04 CULTURE BLOOD [BC] Stat 03/18/18 17:09 RT Aerosol Therapy [RC] ASDIRECTED 03/18/18 17:42 CULTURE BLOOD [BC] Stat
[2018-03-18] MEDS ORDERED: Albuterol/Ipratropium 3.0-0.5 MG/3 ML Neb Soln NEB ONE (17:09)
--- NOTE | 2018-03-18 17:23 | CR ---
Chest: Frontal view of the chest was obtained. Comparison: Prior chest x-ray of 03/17/17. Diffuse interstitial and alveolar densities are seen within the chest. Lung nodules were noted on prior study which appear less apparent on this exam. Infusion port is seen entering from the left side. Heart size is normal. Upper mediastinum is widened. Bony structures are grossly intact. Impression: 1. Diffuse interstitial and alveolar densities. Findings may represent lymphangiectatic metastasis, infection which includes opportunistic as well as typical infection or combination of infection and metastasis. 2. Widened upper mediastinum and lymphadenopathy is not excluded. 3. Other incidental findings. Diagnostic code #9
[2018-03-18] MEDS ORDERED: Piperacillin/Tazobactam 4.5 GM in Sodium Chloride 0.9% 100 ML IV ONE (17:40)
[2018-03-18] MEDS ORDERED: Sodium Chloride 0.9% 1,000 ML ONE (18:35)
== END 2018-03-18 19:10 ==
LOC: JD.ED 15:54
DX: J18.9 Pneumonia, unspecified organism (principal); M79.89 Other specified soft tissue disorders; T45.1X5A Adverse effect of antineoplastic and immunosuppressive drugs, initial encounter; C85.90 Non-Hodgkin lymphoma, unspecified, unspecified site; E87.1 Hypo-osmolality and hyponatremia; I10 Essential (primary) hypertension; Z87.891 Personal history of nicotine dependence
CPT/HCPCS: 36415; 71045; 80053; 83880; 85025; 86140; 87040; 94640; 96365; 99285; J2543; J7030; J7040; J7620-GY